=== PATIENT | female | born 1980 | race Caucasian/White ===

== ENCOUNTER 2021-07-08 09:38 | Emergency (ER) | payer OTHER ==
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
[2021-07-08] MEDS ORDERED: ACETAMINOPHEN 500 MG TAB ONE (10:30)
[2021-07-08 10:36] LABS: Urine Blood Trace-intact (Negative); Urine Glucose Negative (Negative); Urine Protein Negative (Negative); Urine Specific Gravity 1.015 (1.005-1.030)
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
[2021-07-08 12:20] VITALS: TEMP 98; O2SAT 100
[2021-07-08 12:23] VITALS: BP 102/68
[2021-07-08 13:07] LABS: Urine Specific Gravity/Preg 1.015 (1.005-1.030)
== END 2021-07-08 12:12 | disposition home or self-care (01) ==
LOC: ER 09:38
DX: M62.830 Muscle spasm of back (principal); V59.40XA Driver of pick-up truck or van injured in collision with unspecified motor vehicles in traffic accident, initial encounter; Z88.2 Allergy status to sulfonamides; Z88.5 Allergy status to narcotic agent
CPT/HCPCS: 72125; 72131; 81003; 81025; 99284